=== PATIENT | female | born 1990 | race African-American/Black ===

== ENCOUNTER 2018-04-19 21:26 | Inpatient (IN) ==
[2018-04-20] MEDS: UNASYN 3 GM/NS 3 GM/100 ML IVPB IV SCH ×2 (02:00→09:15)
[2018-04-20] MEDS ORDERED: DECADRON IV ONE (02:02)
--- NOTE | 2018-04-20 02:16 | PROVIDER DOCUMENTATION ---
This chart was entered by Shirley Murillo Scribe, acting as scribe for Gilbert Syed MD. HPI-General Adult - General Chief Complaint: Sore Throat Stated Complaint: THROAT PAIN Time Seen by Provider: 04/20/18 00:26 Source: patient Allergies/Adverse Reactions: Patient Allergies Allergy/AdvReac Type Severity Reaction Status Date / Time No Known Allergies Allergy Verified 11/24/17 08:51 Home Medications: Home Medication List Medication Instructions Recorded Confirmed Last Taken Type Naproxen [Naprosyn] 500 mg PO BID #20 tab 11/24/17 Unknown Rx Ibuprofen [Motrin] 600 mg PO Q6-8H PRN PRN #14 tab 04/14/18 Unknown Rx Prednisone 20 mg PO BID #10 tab 04/14/18 Unknown Rx - History of Present Illness -Gen Adult Nature of Presenting Problems: 27yof presents to ED c/o sore throat and trouble swallowing x 1 week. Pt denies any other medical problems. She had severe pharngitis in Sept of last year with prominent lymphadnopathy and "kissing" tonsils of CT. She was seen [address] Tariq and given bicillin for pharyngitis with difficulty swallowing and returns today without improvement, obvious drooling and change in voice. Review of Systems - Adult - REVIEW OF SYSTEMS - ADULT Constitutional: denies: chills, fever, fatique Eyes: reports: no symptoms reported Ears, Nose, Mouth & Throat: reports: see HPI, throat pain, other (trouble swallowing) Cardiovascular: reports: no symptoms reported Respiratory: reports: no symptoms reported Gastrointestinal: reports: no symptoms reported Genitourinary: reports: no symptoms reported Musculoskeletal: reports: no symptoms reported Integumentary: reports: no symptoms reported Neurological: reports: no symptoms reported Psychiatric: reports: no symptoms reported Endocrine: reports: no symptoms reported Hematologic/Lymphatic: reports: no symptoms reported Allergic/Immunologic: reports: no symptoms reported All Other Systems: Reviewed and Negative Past History - Adult - PAST MEDICAL HISTORY-ADULT Review of Records: reports: Nursing Assessment Review, Medications Reviewed Major Childhood Illnesses: reports: denies history Cardiovascular: reports: denies history Respiratory: reports: denies history Gastrointestinal: reports: denies history Obstetrical/Gynecological: reports: denies history Genitourinary: reports: denies history Musculoskeletal: reports: denies history Neurological: reports: denies history Psychiatric: reports: denies history Endocrine/Immune: reports: denies history Other Conditions: reports: denies history - PRIOR SURGERIES/PROCEDURES Surgical/Procedure History: reports: none - IMMUNIZATION STATUS Childhood Immunizations: See Nurse Assessment Flu Vaccine: See Nurse Assessment - FAMILY HISTORY Family History: reviewed, not pertinent Physical Exam-General - PHYSICAL EXAM-ADULT Initial Vital Signs Reviewed: Yes - CONSTITUTIONAL General Appearance: appears well, alert, no apparent distress - EYES Eyes: PERRL/EOMI, pink conjunctivae - HEAD, EARS, NOSE, MOUTH & THROAT HENMT: normocephalic/atraumatic, moist mucous membranes, other (tonsillar abscess in right side) - NECK Neck: non-tender, full range of motion, supple - RESPIRATORY Respiratory: chest non-tender, lungs clear, normal breath sounds - CARDIOVASCULAR Cardiovascular: normal peripheral pulses, regular rate, rhythm - GASTROINTESTINAL (ABDOMEN) Abdominal Exam: normal bowel sounds, non tender, soft - LYMPHATIC Lymphatic: no adenopathy - MUSCULOSKELETAL Back Exam: normal inspection, no CVA tenderness Extremity: normal range of motion, non-tender - SKIN Integumentary: normal color, normal turgor, warm/dry - NEUROLOGIC Neurologic: finished cloth examiner II-XII nml as tested, grossly normal, no motor/sensory deficits - PSYCHIATRIC Psych/Mental Status: normal mood/affect, normal thought content, normal thought process, oriented x 3 Progress - PLAN OF CARE/RESULTS Progress/Plan/Lab Results: Vital Signs - 8 hr 04/19/18 21:33 Temperature 98.8 F Pulse Rate 81 Respiratory Rate 20 Blood Pressure 107/60 O2 Sat by Pulse Oximetry 99 04/19/18 21:36 Group A Strep Rapid Antigen - Final Throat Orders Category Date Time Status DIRECT STREP Stat Lab 04/19/18 21:36 Completed - CT/MRI 1 CT Study: Neck (2.2 by 2.4 by3.6 right peritonsillar abscess) - CONSULTS/PCP/HOSPITALIST Notification #1 *Consult/PCP/Hospitalist*: Dr Casey Time Discussed: 01:50 Consult Disposition: other (Admit to hospitalist .) #2 Consult: Dr Smith Time Discussed: 02:13 Consult Disposition: Admit Departure - Departure Date of Disposition Decision: 04/20/18 Time of Disposition Decision: 02:14 DIAGNOSIS: Peritoneal abscess Disposition: ADMITTED INPATIENT 09 Certified Medical Emergency: Emergent Condition: Stable Referrals and Follow-Ups: None,PCP [Primary Care Provider] - - Critical Care Note This patient required my direct & personal management of CC.: No Attestation - Physician/ JENNIFER Attestation Patient care was provided by Advanced Practice Provider:: No The physician spent face to face time with patient:: Yes Advanced Practice Provider documentation review:: Supervising physician onsite and consulted in the evaluation and care of this patient. The physician did have a face to face encounter with the patient. This chart was documented by the indicated scribe, (Shirley Murillo Scribe) and accurately reflects the services I performed and decisions made by me, Gilbert Syed MD, as attested by the provider's signature.
[2018-04-20] MEDS: NS 1,000 ML IV SCH ×3 (02:25→15:41)
[2018-04-20 02:49] LABS: BASO# 0.01 X1000 (0.0-0.2); BASO% 0.1 % (0.0-0.8); EOS# 0.01 X1000 (0.0-0.7); EOS% 0.1 % (0.0-10.0); HEMATOCRIT 38.4 % (37.0-47.0); HEMOGLOBIN 12.5 g/dL (12.0-16.0); IMM GRAN# 0.03 X1000 (0.0-0.04); IMM GRAN% 0.2 % (0.0-0.5); LYMPH# 2.88 X1000 (1.2-3.4); LYMPH% 23.2 % (20.5-51.1); MCH 28.2 PG (27-31); MCHC 32.6 g/dL (33-37); MCV 86.5 FL (81-99); MONO# 1.14 X1000 (0.11-0.59); MONO% 9.2 % (1.7-9.3); MPV 8.9 FL (7.4-10.4); NEUT# 8.36 X1000 (1.4-6.5); NEUT% 67.2 % (42.2-75.2); PLT 406 X1000 (130-400); RBC 4.44 XMIL (4.2-5.4); RDW 12.6 % (11.5-14.5); WBC 12.43 X1000 (4.8-10.8)
[2018-04-20 02:59] LABS: AGAP 11; ALB/GLOB RATIO 0.9; ALBUMIN 3.8 g/dL (3.5-5.0); ALKALINE PHOSPHATASE 57 U/L (32-104); BUN 10 mg/dL (8-22); CALCIUM 7.7 mg/dL (8.8-10.2); CHLORIDE 101 mmol/L (98-107); COSMO 280; CREATININE 0.9 mg/dL (0.5-0.9); ESTIMATED GFR > 60; GLUCOSE 98 mg/dL (70-104); GOT 11 U/L (10-30); GPT 11 U/L (10-36); POTASSIUM 3.3 mmol/L (3.5-5.1); SODIUM 141 mmol/L (136-145); TCO2 29 mmol/L (25-35); TOTAL BILIRUBIN 0.34 mg/dL (0.20-1.00); TOTAL PROTEIN 7.9 g/dL (6.3-8.3)
[2018-04-20] MEDS ORDERED: UNASYN 3 GM/NS 3 GM/100 ML IVPB IV ONE (03:00)
--- NOTE | 2018-04-20 03:09 | HISTORY AND PHYSICAL ---
PRIMARY CARE PHYSICIAN: None. CHIEF COMPLAINT: Sore throat x1 week. HISTORY OF PRESENTING ILLNESS: This is a 27-year-old female without any significant past medical history who had presented to the emergency department with a 1-week history of having a sore throat. The patient states that she was having difficulty swallowing and it seemed to be worsening. She was evaluated in the emergency department. She had imaging of her neck which did show a tonsillar abscess. Her case was discussed with ENT who recommended that the patient be admitted and put on IV antibiotics. At the time of my examination, she had denied any headache, fever, chills, chest pain, shortness of breath, or any weight changes but complained of a sore throat. PAST MEDICAL HISTORY: None. PAST SURGICAL HISTORY: None. ALLERGIES: No known drug allergies. CURRENT MEDICATIONS: None. SOCIAL HISTORY: Denies any history of smoking, alcohol, or illicit drug use. FAMILY HISTORY: No history of coronary artery disease. REVIEW OF SYSTEMS: Fourteen point review of systems is as listed in the HPI. Other systems negative. PHYSICAL EXAMINATION: GENERAL: Cooperative, friendly female. She is resting comfortably now. VITAL SIGNS: Temperature 98.8 degrees, pulse 81, respirations 20, blood pressure 107/60. HEENT: Atraumatic, normocephalic. Extraocular movements intact. PERRLA. Throat, there is erythema. It is difficult to examine also. NECK: There is tenderness. CHEST: Clear to auscultation. CARDIOVASCULAR: Regular rate and rhythm. ABDOMEN: Soft. Positive bowel sounds. EXTREMITIES: No edema. NEUROLOGIC: She is awake, alert, oriented x3. : No bladder distention. SKIN: Warm. LABORATORIES AND STUDIES: Still pending. ASSESSMENT: A 27-year-old female without any significant past medical history who presented to the emergency department with a 1-week history of having a sore throat and difficulty swallowing. She had imaging done which did show a tonsillar abscess. Subsequently, she will require admission for further management. Right tonsillar abscess. PLAN: 1. We will admit the patient to the medical floor. 2. We will keep the patient NPO. 3. Start the patient on IV antibiotics. 4. We will consult ENT. 5. We will continue to follow and reassess, and make further recommendation based on patient's clinical course. cc: Alex Smith MD
[2018-04-20] MEDS ORDERED: NS 1,000 ML IV ONE (03:20)
[2018-04-20] MEDS ORDERED: ZOFRAN IV PRN (05:56)
[2018-04-20] MEDS: MORPHINE IV PRN ×2 (06:26→09:15)
--- NOTE | 2018-04-20 06:41 | Diag Imaging Result Doc PS360 ---
CT NECK W/CONTRAST - 04/20/2018 INDICATION: sore throat and unable to swallow or talk COMPARISON: 11/23/2017 FINDINGS: There is recurrent rather severe bilateral tonsillitis of the lingual tonsils. Centrally within the right tonsil, there is a fairly large abscess. This measures 2 x 2.2 cm in AP and lateral dimensions. No cervical lymphadenopathy. The great vessels of the neck are patent. The sinuses, mastoids, and middle ears are clear. IMPRESSION: Tonsillitis. Rather large right tonsillar abscess. This report was discussed with Dr. Syed on 04/20/2018 at 1:43 AM and was readback. This exam was performed using automated exposure control, adjustment of mA or kV according to patient size, and/or use of iterative reconstruction technique Electronically signed by Tyree Marin 04/20/2018 6:38 AM
[2018-04-20] MEDS ORDERED: XYLOCAINE-MPF 1%/EPI 1:200,000 ONE (12:15)
[2018-04-20] MEDS ORDERED: VANCOMYCIN IV PER PHARMACY MISC SCH (12:15)
[2018-04-20] MEDS ORDERED: FENTANYL ONE (12:24)
[2018-04-20] MEDS ORDERED: QUELICIN (DOSE) ONE (12:24)
[2018-04-20] MEDS ORDERED: ROBINUL ONE (12:24)
[2018-04-20] MEDS ORDERED: DIPRIVAN 1% ONE (12:25)
[2018-04-20] MEDS ORDERED: NAROPIN 0.2% ONE (12:37)
[2018-04-20] MEDS ORDERED: ZOFRAN ONE (12:45)
[2018-04-20] MEDS ORDERED: DECADRON ONE (12:45)
[2018-04-20] MEDS ORDERED: CLINDAMYCIN ONE (12:50)
[2018-04-20] MEDS ORDERED: HYDROCODONE/APAP 7.5-325/15 ML PO PRN (12:59)
--- NOTE | 2018-04-20 13:29 | OPERATIVE NOTE ---
PROCEDURE DATE: 04/20/2018 PREOPERATIVE DIAGNOSIS: Right peritonsillar abscess. POSTOPERATIVE DIAGNOSIS: Right peritonsillar abscess. PROCEDURE: Incision and drainage right peritonsillar abscess. COMPLICATIONS: None. ANESTHESIA: General with endotracheal intubation. FINDINGS: 5 or 6 mL of pus in the right peritonsillar abscess. Culture was taken for Gram stain, anaerobe and aerobe. I think the patient did well, and the cavity was irrigated with antibiotic solution. I think after another overnight stay in the hospital getting the antibiotics and steroids, she could be discharged on a soft diet and hydrocodone pain medicine. Follow up with me in office in 10 days. DESCRIPTION OF PROCEDURE: The patient was identified and consented. Options were reviewed. She was brought to the operating room, placed in supine position where general anesthesia was induced with endotracheal intubation. McIvor mouth gag was placed. Right anterior tonsillar pillar was noted to be bleeding, and purulent drainage was coming from a place where a needle was placed this morning to try to drain the tonsil to no avail. Incision was created over this area roughly 1 cm and capsule dissection was taken down to the peritonsillar abscess. Copious amount of pus was removed through this incision and drainage technique. The culture was taken and Gram stain as well. Clindamycin saline irrigation was used to copiously irrigate the cavity until nothing else returned. Cautery was applied. Ropivacaine 0.2% was injected to the skin around the tonsil area. She tolerated the procedure well, and was allowed to recover from anesthesia. She was extubated and transferred to the recovery room in stable condition. cc: Otis Casey MD
[2018-04-20] MEDS: ZOSYN 3.375 GM in NS 50 ML IV SCH ×2 (15:42→21:58)
[2018-04-20] MEDS ORDERED: VANCOMYCIN 1,950 MG in NS 500 ML IV ONE (16:00)
[2018-04-21] MEDS: NS 1,000 ML IV SCH (03:11)
[2018-04-21] MEDS: ZOSYN 3.375 GM in NS 50 ML IV SCH ×2 (03:11→09:37)
[2018-04-21 06:44] LABS: BASO# 0.01 X1000 (0.0-0.2); BASO% 0.1 % (0.0-0.8); EOS# 0.04 X1000 (0.0-0.7); EOS% 0.4 % (0.0-10.0); HEMATOCRIT 37.5 % (37.0-47.0); HEMOGLOBIN 11.6 g/dL (12.0-16.0); MCH 27.8 PG (27-31); MCHC 30.9 g/dL (33-37); MCV 89.7 FL (81-99); MONO# 0.69 X1000 (0.11-0.59); MONO% 7.2 % (1.7-9.3); NEUT# 6.61 X1000 (1.4-6.5); NEUT% 69.3 % (42.2-75.2); PLT 370 X1000 (130-400); RBC 4.18 XMIL (4.2-5.4); RDW 12.9 % (11.5-14.5); WBC 9.55 X1000 (4.8-10.8)
[2018-04-21 07:26] LABS: AGAP 8; BUN 7 mg/dL (8-22); CHLORIDE 108 mmol/L (98-107); COSMO 283; CREATININE 0.9 mg/dL (0.5-0.9); ESTIMATED GFR > 60; GLUCOSE 91 mg/dL (70-104); POTASSIUM 3.9 mmol/L (3.5-5.1); SODIUM 143 mmol/L (136-145); TCO2 27 mmol/L (25-35)
[2018-04-21] MEDS ORDERED: PERIDEX MT SCH (09:00)
[2018-04-21] MEDS ORDERED: VANCOMYCIN 1,450 MG in NS 250 ML IV SCH (10:00)
[2018-04-21 13:59] VITALS: BP 100/45
--- NOTE | 2018-04-22 05:45 | DISCHARGE SUMMARY ---
ADMISSION DATE: 04/20/2018 DISCHARGE DATE: 04/21/2018 DISCHARGE DIAGNOSIS: Right tonsillar abscess status post incision and drainage. CONSULTATIONS: Dr. Otis Casey from ENT. PROCEDURES: 1. Neck CT showed tonsillitis, large right tonsillar abscess. 2. Incision and drainage of a right peritonsillar abscess performed by Dr. Otis Casey. HOSPITAL COURSE: This is a 27-year-old female with unremarkable past medical history who presented to the emergency department complaining of 1-week history of sore throat. The patient underwent a CT of the neck which showed an abscess, we have consulted ENT and the abscess was drained. They recommended to keep this patient one more day after surgery. On the day of discharge the patient was feeling much better. She is able to take medications in liquids. So at this point she is feeling okay so she is going to be discharged in stable condition. DISCHARGE PHYSICAL EXAMINATION: Vital Signs: Temperature 98.7 degrees, heart rate 70, respiratory rate 16, blood pressure 100/60, O2 saturation 99% on room air. General: This is the 27-year-old female lying in bed in no acute distress. Cardiovascular: S1 and S2 heard. No murmurs, gallops or rubs. Regular rate and rhythm. Respiratory: Clear bilaterally to auscultation. No work of breathing or using accessory muscles. Abdomen: Soft, nontender to palpation. Bowel sounds present. No organomegaly. Extremities: No clubbing, cyanosis or edema. Peripheral pulses present. Neurological: The patient is alert and oriented x3. Moves all 4 extremities. DISCHARGE DISPOSITION: Home to self-care. FOLLOW-UP: Follow up with Dr. Casey in 1 week. DISCHARGE MEDICATIONS: 1. Augmentin liquid 400 mg/5 mL 11 mL every 12 hours for 10 days. 2. [place] 7.5 mg liquid 15 mL p.o. every 4 hours as needed. cc: Benjamin Gee MD
== END 2018-04-21 16:17 | disposition home or self-care (01) | DRG 134 ==
LOC: ED 21:26 → SUATTDRO 04-20 04:58 → 4N 04-20 04:58
PROVIDERS: ATTEND Internal Medicine
CPT/HCPCS: 70491; 80048; 80053; 85025; 87040; 87070; 87075; 87077; 87081; 87205; 87430; 94799; 96361; 96365; 96375; 99285; A9270; J0295; J0330; J1100; J2270; J2405; J2543; J2795; J3010; J3370; J7030; J7040; J7050; Q9967; S0077